=== PATIENT | female | born 1955 | race Caucasian/White ===

== ENCOUNTER 2020-11-10 19:51 | Emergency (ER) | payer OTHER ==
[~2020-11-10] VITALS: Ht 154.9 cm; Wt 68.0 kg
[2020-11-10 20:15] LABS: URINE BILIRUBIN NEGATIVE (Negative); URINE BLOOD NEGATIVE (Negative); URINE CLARITY CLEAR; URINE COLOR YELLOW; URINE GLUCOSE-RANDOM NEGATIVE (Negative); URINE KETONES NEGATIVE (Negative); URINE LEUKOCYTES-REFLEX TRACE (Negative); URINE NITRITE-REFLEX NEGATIVE (Negative); URINE PROTEIN NEGATIVE (Negative); URINE SPECIFIC GRAVITY 1.015 (1.005-1.030); URINE UROBILINOGEN 0.2 E.U./dl (0.2-1.0)
[2020-11-10] MEDS ORDERED: ZOCOR 10 MG TAB10 M1 PO (20:15)
[2020-11-10] MEDS ORDERED: CELEXA 20 MG TA20 MG PO (20:15)
[2020-11-10] MEDS ORDERED: AMBIEN CR12.5 MG PO (20:16)
[2020-11-10] MEDS ORDERED: ZETIA10 MG PO (20:16)
[2020-11-10] MEDS ORDERED: XANAX1 MG PO (20:17)
[2020-11-10] MEDS ORDERED: EVISTA60 MG PO (20:17)
[2020-11-10] MEDS ORDERED: PROTONIX40 M2 PO (20:18)
[2020-11-10] MEDS ORDERED: PERCOCET 5-3251 EACH PO (20:18)
[2020-11-10 20:27] LABS: MUCUS None Seen strn/LPF (None Seen); SQUAMOUS 4-10 Moderate /LPF (0-3)
[2020-11-10 20:28] LABS: BACTERIA-REFLEX None Seen /HPF (None Seen); CASTS None Seen /LPF (None Seen); CRYSTALS None Seen /LPF (None Seen); URINE RBC None Seen /HPF (0-2); URINE WBC-REFLEX 0-5 Rare /HPF (0-5)
[2020-11-10 20:38] LABS: ABSOLUTE BASOPHILS 0.1 thou/uL (0.0-0.2); ABSOLUTE EOSINOPHILS 0.3 thou/uL (0.0-0.7); ABSOLUTE LYMPHOCYTES 2.2 thou/uL (0.8-5.3); ABSOLUTE MONOCYTES 0.7 thou/uL (0.0-1.2); ABSOLUTE NEUTROPHILS 5.1 thou/uL (1.6-8.1); HEMATOCRIT 38.6 % (37.0-47.0); LYMPHOCYTES 26.5 %; MCH 30.1 pg (26.0-34.0); MCHC 33.6 g/dL (28.0-37.0); MCV 89.5 fL (80.0-100.0); MONOCYTES 7.8 %; MPV 8.1 fl. (7.2-11.1); NUCLEATED RBCS 0 /100WBC; PLATELET COUNT* 290 thou/uL (150-400); POLYS 60.7 %; RBC 4.31 mil/uL (4.20-5.00); RDW-CV 13.3 % (10.5-14.5); WBC 8.4 thou/uL (4.0-11.0)
[2020-11-10 20:43] LABS: CALCIUM 8.8 mg/dL (8.5-10.1); CREATININE 0.6 mg/dL (0.6-1.3); POTASSIUM 3.5 mmol/L (3.5-5.1)
[2020-11-10 20:46] LABS: PROTIME 10.9 Seconds (9.20-11.50)
[2020-11-10 20:47] LABS: ALBUMIN 3.7 g/dL (3.4-5.0); TOTAL BILIRUBIN 0.3 mg/dL (<0.1-1.0); TOTAL PROTEIN 7.4 g/dL (6.4-8.2)
[2020-11-10] MEDS ORDERED: CARAFATE 1 GM TA1 GM PO (20:53)
[2020-11-10] MEDS ORDERED: OMEPRAZOLE40 MG PO (20:53)
[2020-11-10 21:56] VITALS: BP 136/52
--- NOTE | 2020-11-11 13:57 | EKG ---
[place] [address] ELECTROCARDIOGRAM REPORT Name: ALYX YOON Room: [facility]#: [id number] Admission: 11/10/20 Attend Phys: Discharge: 11/10/20 Date of : 57 Date of Service: 11/10/202048 Report #: [id number] THIS REPORT FOR: //name// [facility] ED Test Date: 2020-11-10 Test Time: 20:49:38 Pat Name: ALYX YOON Department: Room: Gender: Salvage Determiner: [facility] : 1955 Requested By: Yuliana Kahn Order Number: [id number] MD: Lico Madera Measurements Intervals [place] Rate: 83 P: 48 MN: 141 QRS: 25 QRSD: 85 T: 35 QT: 388 QTc: 456 Interpretive Statements Sinus rhythm Low voltage, precordial leads No previous ECG available for comparison Electronically Signed On 11-11-2020 13:57:09 CDT by Lico Madera [email or web address] <ELECTRONICALLY SIGNED> By: Lico Madera MD, [facility] 11/11/20 1357 48 48 Lico Madera MD, FAC /EPI
== END 2020-11-10 21:56 | disposition home or self-care (01) ==
LOC: M.ERS 19:51
PROVIDERS: Personal Emergency Response Attendant
DX: K29.70 Gastritis, unspecified, without bleeding (principal); R11.2 Nausea with vomiting, unspecified; R10.13 Epigastric pain; Z79.899 Other long term (current) drug therapy